=== PATIENT | female | born 1985 | race Two or more races ===

== ENCOUNTER → 2017-06-22 | Outpatient (REF) | payer MEDICAID ==
[2017-06-22 14:00] LABS: HEMATOCRIT 38.9 % (36.0-47.0); HEMOGLOBIN 12.7 g/dl (12.0-16.0); MEAN CORPUSCULAR HEMOGLOBIN 29.4 pg (27.0-33.0); MEAN CORPUSCULAR HGB CONC 32.6 g/dl (32.0-36.5); PLATELET COUNT, AUTOMATED 361 10^3/uL (150-450); RED BLOOD COUNT 4.32 10^6/uL (4.00-5.40); RED CELL DISTRIBUTION WIDTH 11.8 % (11.5-14.5); WHITE BLOOD COUNT 5.6 10^3/uL (4.0-10.0)
[2017-06-22 16:42] LABS: HCG, SERUM QUANTITATIVE 103015 MIU/ML
[2017-06-23 11:00] LABS: RUBELLA IgG QUALITATIVE IMMUNE (IMMUNE)
[2017-06-23 11:06] LABS: HEPATITIS B SURFACE ANTIGEN NEGATIVE (NEGATIVE)
[2017-06-23 11:30] LABS: HIV 1&2 SCREEN CENTAUR NEGATIVE (NEGATIVE)
== END ==
LOC: M LAB REF 12:50
DX: O36.80X0 Pregnancy with inconclusive fetal viability, not applicable or unspecified (principal)

== ENCOUNTER 2017-06-27 20:46 | Emergency (ER) | payer OTHER, MEDICAID ==
[2017-06-27] MEDS: ACETAMINOPHEN TAB 650MG DOSE (2X325MG) PO (21:29)
[2017-06-27] MEDS: NS 500 ML IV (22:30)
[2017-06-27 22:31] LABS: BASO % 0.1 % (0.0-1.0); EOS # 0.1 10^3/uL (0.0-0.50); EOS % 1.9 % (0.0-3.0); HEMATOCRIT 37.1 % (36.0-47.0); HEMOGLOBIN 12.2 g/dl (12.0-16.0); IMMATURE GRANULOCYTE % 0.3 % (0-0); LYMPH # 3.3 10^3/uL (1.5-4.5); LYMPH % 43.4 % (24.0-44.0); MEAN CORPUSCULAR HEMOGLOBIN 29.8 pg (27.0-33.0); MEAN CORPUSCULAR HGB CONC 32.9 g/dl (32.0-36.5); MEAN CORPUSCULAR VOLUME 90.5 fl (80.0-96.0); MONO # 0.7 10^3/uL (0.0-0.8); MONO % 9.7 % (0.0-5.0); NEUTROPHILS # 3.3 10^3/uL (1.8-7.7); NEUTROPHILS % 44.6 % (36.0-66.0); PLATELET COUNT, AUTOMATED 320 10^3/uL (150-450); RED CELL DISTRIBUTION WIDTH 11.9 % (11.5-14.5); WHITE BLOOD COUNT 7.5 10^3/uL (4.0-10.0)
[2017-06-27 22:54] LABS: ANION GAP 7 MEQ/L (8-16); BLOOD UREA NITROGEN 6 MG/DL (7-18); CARBON DIOXIDE LEVEL 24 MEQ/L (21-32); CHLORIDE LEVEL 105 MEQ/L (98-107); CREATININE FOR GFR 0.56 MG/DL (0.55-1.30); GLOMERULAR FILTRATION RATE > 60.0 (>60); GLUCOSE, FASTING 71 MG/DL (70-100); MAGNESIUM LEVEL 2.2 MG/DL (1.8-2.4); POTASSIUM SERUM 4.3 MEQ/L (3.5-5.1); SODIUM LEVEL 136 MEQ/L (136-145)
[2017-06-27 23:03] LABS: INFLUENZA A AMPLIFICATION NEGATIVE (NEGATIVE); INFLUENZA B AMPLIFICATION NEGATIVE (NEGATIVE)
== END 2017-06-28 00:35 | disposition home or self-care (01) ==
LOC: M ED 06-28 00:35
DX: G43.009 Migraine without aura, not intractable, without status migrainosus (principal)
CPT/HCPCS: 83735

== ENCOUNTER → 2018-01-04 | Outpatient (REF) | payer OTHER | LOC: M LAB REF 12:57 | DX: Z34.83 Encounter for supervision of other normal pregnancy, third trimester (principal) ==

== ENCOUNTER 2018-01-27 10:45 | Inpatient (IN) | payer OTHER ==
[2018-01-27] MEDS ORDERED: miSOPROStol 50 MCG 1/2 TAB (S0191) PO (11:00)
[2018-01-27 11:50] LABS: HEMATOCRIT 36.4 % (36.0-47.0); HEMOGLOBIN 11.6 g/dl (12.0-15.5); MEAN CORPUSCULAR HEMOGLOBIN 29.4 pg (27.0-33.0); MEAN CORPUSCULAR HGB CONC 31.9 g/dl (32.0-36.5); MEAN CORPUSCULAR VOLUME 92.2 fl (80.0-96.0); PLATELET COUNT, AUTOMATED 252 10^3/uL (150-450); RED BLOOD COUNT 3.95 10^6/uL (4.00-5.40); RED CELL DISTRIBUTION WIDTH 13.4 % (11.5-14.5); WHITE BLOOD COUNT 4.7 10^3/uL (4.0-10.0)
[2018-01-27] MEDS: LR 1,000 ML IV ×3 (12:36→22:54)
[2018-01-27] MEDS: OXYTOCIN DRIP 30 UNITS in APPROPRIATE DILUENT 1 EA IV (12:37)
[2018-01-27 12:44] LABS: AMPHETAMINES URINE REFLEX NEGATIVE (NEGATIVE); BARBITURATES URINE REFLEX NEGATIVE (NEGATIVE); BENZODIAZEPINES URINE REFLEX NEGATIVE (NEGATIVE); CANNABINOIDS URINE REFLEX NEGATIVE (NEGATIVE); COCAINE METABOLITE URINE REFLE NEGATIVE (NEGATIVE); METHADONE URINE REFLEX NEGATIVE (NEGATIVE); OPIATES URINE REFLEX NEGATIVE (NEGATIVE); PHENCYCLIDINE URINE REFLEX NEGATIVE (NEGATIVE)
[2018-01-27] MEDS ORDERED: FENTANYL 2MCG/ML ROPIVACAINE 0.2% IN 0.9% NACL 200ML IVBAG As Ordered (19:49)
[2018-01-27] MEDS ORDERED: diphenhydrAMINE INJ 50MG/ML VIAL (J1200) IV (20:30)
[2018-01-27] MEDS ORDERED: NALOXONE INJ 0.4 MG/1 ML VIAL (J2310) IV (20:30)
[2018-01-27] MEDS ORDERED: EPIDURAL/PCA KEYS XX (20:30)
[2018-01-27] MEDS ORDERED: ePHEDrine SULFATE 25 MG/5 ML(5MG/ML) SYRINGE IV (20:30)
[2018-01-27] MEDS ORDERED: EPIDURAL COMMENT XX (20:30)
[2018-01-27] MEDS ORDERED: LACTATED RINGER'S 1000 ML IV (20:30)
[2018-01-27] MEDS ORDERED: REFRIGERATOR IV KEYS XX (20:30)
[2018-01-27] MEDS ORDERED: ONDANSETRON 4MG/2ML VIAL (J2405) As Ordered (20:34)
[2018-01-27] MEDS: ONDANSETRON 4MG/2ML VIAL (J2405) IV (20:44)
[2018-01-27] MEDS: FENTANYL/ROPIVACAINE/NACL BAG 200 ML EPIDURAL (20:54)
[2018-01-28 01:40] LABS: CORD GAS ABE V -5.7; CORD GAS HCO3 V 21.7 MEQ/L; CORD GAS O2 SAT V 51.2 %; CORD GAS PCO2 V 49.9 mmHg; CORD GAS PH V 7.257 UNITS; CORD GAS PO2 V 24.3 mmHg; CORD GAS SBC V 18.8 MEQ/L; CORD GAS TCO2 V 23.3 MEQ/L
[2018-01-28 01:41] LABS: CORD GAS HCO3 A 22.3 MEQ/L; CORD GAS O2 SAT A 61.3 %; CORD GAS PH A 7.097 UNITS; CORD GAS SBC A 16.6 MEQ/L; CORD GAS TCO2 A 24.6 MEQ/L
[2018-01-28] MEDS ORDERED: RHOGAM 300 MCG (1500 IU) INJ (J2790) IM (02:15)
[2018-01-28] MEDS ORDERED: MEASLES,MUMPS,RUBELLA VACCINE INJ (MMR-II) (90707) SC (02:15)
[2018-01-28] MEDS ORDERED: ANUSOL HC CREAM 30GM TOP (02:15)
[2018-01-28] MEDS ORDERED: ACETAMINOPHEN 500 MG TAB PO (02:15)
[2018-01-28] MEDS ORDERED: DIBUCAINE 1% OINTMENT 30GM TOP (02:15)
[2018-01-28] MEDS ORDERED: DOCUSATE SODIUM 100 MG CAP PO (02:15)
[2018-01-28] MEDS: METHYLERGONOVINE MALEATE 0.2 MG TAB PO (02:19)
[2018-01-28] MEDS: OXYTOCIN DRIP 30 UNITS in APPROPRIATE DILUENT 1 EA IV (02:20)
[2018-01-28] MEDS: PRENATAL VITAMINS CHEWABLE TABLET PO (08:16)
[2018-01-28] MEDS: IBUPROFEN 800 MG TAB PO (20:17)
[2018-01-29] MEDS: PRENATAL VITAMINS CHEWABLE TABLET PO (11:22)
[2018-01-29] MEDS: INFLUENZA QUADRIVALENT PF VACCINE 0.5ML SYRINGE (90686) IM (11:23)
== END 2018-01-29 12:17 | disposition home or self-care (01) | DRG 560 ==
LOC: M LDI 10:45 → M OBS 01-28 03:12
PROVIDERS: Advanced Practice Midwife
PROC: 10907ZC Drainage of Amniotic Fluid, Therapeutic from Products of Conception, Via Natural or Artificial Opening (ICD-10-PCS; 2018-01-27)
PROC: 3E033VJ Introduction of Other Hormone into Peripheral Vein, Percutaneous Approach (ICD-10-PCS; 2018-01-27)
PROC: 10E0XZZ Delivery of Products of Conception, External Approach (ICD-10-PCS; principal; 2018-01-28)
DX: O40.3XX0 Polyhydramnios, third trimester, not applicable or unspecified (principal); O32.6XX0 Maternal care for compound presentation, not applicable or unspecified; Z3A.40 40 weeks gestation of pregnancy; O43.193 Other malformation of placenta, third trimester; Z37.0 Single live birth

== ENCOUNTER 2018-03-23 08:32 | Day surgery (SDC) | payer OTHER ==
[2018-03-23] MEDS ORDERED: ONDANSETRON 4MG/2ML VIAL (J2405) As Ordered ×2 (08:42)
[2018-03-23] MEDS ORDERED: LIDOCAINE 2% INJ 100 MG/5 ML SDV (FOR ANES.) As Ordered (08:42)
[2018-03-23] MEDS ORDERED: dexameTHASONE 4 MG/ML 1ML VIAL (J1100) As Ordered (08:42)
[2018-03-23] MEDS ORDERED: ROCURONIUM BROMIDE 50 MG/5 ML VIAL As Ordered (08:42)
[2018-03-23] MEDS ORDERED: PROPOFOL 200 MG/20 ML VIAL As Ordered ×2 (08:42→10:13)
[2018-03-23] MEDS ORDERED: MIDAZOLAM INJ 2 MG/2 ML VIAL (J2250) As Ordered (08:43)
[2018-03-23] MEDS ORDERED: fentaNYL 250 MCG/5 ML INJECTION (J3010) As Ordered (08:43)
[2018-03-23 08:55] LABS: HEMATOCRIT 39.8 % (36.0-47.0); HEMOGLOBIN 12.8 g/dl (12.0-15.5); MEAN CORPUSCULAR HEMOGLOBIN 29.4 pg (27.0-33.0); MEAN CORPUSCULAR HGB CONC 32.2 g/dl (32.0-36.5); MEAN CORPUSCULAR VOLUME 91.5 fl (80.0-96.0); PLATELET COUNT, AUTOMATED 347 10^3/uL (150-450); RED BLOOD COUNT 4.35 10^6/uL (4.00-5.40); RED CELL DISTRIBUTION WIDTH 12.8 % (11.5-14.5); WHITE BLOOD COUNT 5.7 10^3/uL (4.0-10.0)
[2018-03-23] MEDS: LR 1,000 ML IV (09:10)
[2018-03-23 09:25] LABS: CONTROL LINE UCG INT CTR LINE PRESENT; URINE PREG TEST NEGATIVE (NEGATIVE)
[2018-03-23] MEDS: ACETAMINOPHEN 650 MG SUPP As Ordered (10:21)
[2018-03-23] MEDS: ACETAMINOPHEN 650 MG SUPP PR (10:50)
[2018-03-23] MEDS: BUPIVACAINE/EPIN 0.25% 30 ML VIAL As Ordered (11:22)
[2018-03-23] MEDS ORDERED: KETOROLAC 30 MG/ML VIAL (J1885) As Ordered (11:40)
[2018-03-23] MEDS: KETOROLAC 30 MG/ML VIAL (J1885) IV (11:45)
[2018-03-23] MEDS ORDERED: LR 1,000 ML IV ×2 (12:00)
[2018-03-23] MEDS ORDERED: fentaNYL 100 MCG/2 ML INJECTION (J3010) IV (12:00)
[2018-03-23] MEDS: ONDANSETRON 4MG/2ML VIAL (J2405) IV (12:03)
[2018-03-23] MEDS: PERCOCET 5MG/325MG TAB PO ×2 (12:12→12:36)
[2018-03-23] MEDS ORDERED: PERCOCET 5MG/325MG TAB PO (12:15)
[2018-03-23] MEDS ORDERED: GLYCOPYRROLATE INJ 0.2 MG/ML 2 ML VIAL As Ordered ×2 (12:19)
[2018-03-23] MEDS ORDERED: NEOSTIGMINE 10 MG/10 ML VIAL (J2710) As Ordered (12:19)
[2018-03-23] MEDS ORDERED: IBUPROFEN 800 MG TAB PO (18:00)
== END 2018-03-23 14:10 | disposition home or self-care (01) ==
LOC: M SDC 08:32
DX: Z30.2 Encounter for sterilization (principal); K21.9 Gastro-esophageal reflux disease without esophagitis
CPT/HCPCS: 58671

== ENCOUNTER → 2022-06-01 | Outpatient (REF) | payer MEDICAID ==
[~2022-06-01] MED LIST: IBUP-1114 PO; MAPA500T2 PO; MULT1TAB10 PO; MULTCAP PO; PRENTAB9 PO; REGL10TA6 PO
[2022-06-01 18:56] LABS: ALBUMIN 3.8 G/DL (3.2-5.2); ALKALINE PHOSPHATASE 76 U/L (46-116); ALT/SGPT 19 U/L (7.0-40); AST/SGOT 17 U/L (<34); BILIRUBIN,TOTAL 0.3 MG/DL (0.3-1.2); BLOOD UREA NITROGEN 10 MG/DL (9-23); CALCIUM LEVEL 9.9 MG/DL (8.5-10.1); CARBON DIOXIDE LEVEL 30 MMOL/L (20-31); CHLORIDE LEVEL 104 MMOL/L (98-107); CHOLESTEROL LEVEL 199 MG/DL (<200); CHOLESTEROL RISK RATIO 3.93 (<5); CREATININE FOR GFR 0.71 MG/DL (0.55-1.30); GLOMERULAR FILTRATION RATE > 60.0 (>60); GLUCOSE, FASTING 84 MG/DL (60-100); HDL CHOLESTEROL 50.6 MG/DL (>40); LDL CHOLESTEROL 115.6 MG/DL (<100); NON-HDL-C 148 MG/DL; POTASSIUM SERUM 4.6 MMOL/L (3.5-5.1); SODIUM LEVEL 140 MMOL/L (136-145); TRIGLYCERIDES LEVEL 164 MG/DL (<150)
[2022-06-01 19:22] LABS: HEMOGLOBIN A1c 4.8 % (4.0-6.0)
[2022-06-01 19:50] LABS: THYROID STIMULATING HORMONE 2.019 uIU/ML (0.55-4.78)
== END ==
LOC: M LAB REF 16:33
PROVIDERS: ATTEND Nurse Practitioner Family
DX: E78.5 Hyperlipidemia, unspecified (principal); E55.9 Vitamin D deficiency, unspecified; Z13.228 Encounter for screening for other metabolic disorders

== ENCOUNTER → 2023-06-08 | Outpatient (CLI) | payer OTHER | LOC: M RAD 09:54 | PROVIDERS: ATTEND Physician Assistant | DX: R10.10 Upper abdominal pain, unspecified (principal); R00.1 Bradycardia, unspecified ==

== ENCOUNTER → 2024-03-23 | Outpatient (CLI) | payer OTHER | LOC: M RAD 09:09 | PROVIDERS: ATTEND Physician Assistant | DX: M54.6 Pain in thoracic spine (principal) ==